=== PATIENT | male | born 1995 | race Two or more races ===

== ENCOUNTER 2018-04-19 13:32 | Emergency (ER) | payer MEDICAID, OTHER ==
[~2018-04-19] VITALS: Ht 167.6 cm; Wt 81.6 kg
[2018-04-19] MEDS ORDERED: Methocarbamol 500mg tab ORAL ONE (14:15)
[2018-04-19] MEDS ORDERED: Acetaminophen 500mg (ES) tab ORAL ONE (14:15)
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
[2018-04-19 14:39] VITALS: BP 123/70
[2018-04-19] MEDS ORDERED: ROBAXIN500 MG PO (15:38)
[2018-04-19] MEDS ORDERED: TYLENOL EXTRA500 MG ORAL (15:38)
[2018-04-19 15:57] VITALS: BP 123/70
--- NOTE | 2018-04-20 09:37 | Diagnostic Imaging Report ---
Indications: Reason For Exam: PAIN Technique: 2 or 3 views of the cervical spine Comparison: none Findings: Straightening of the normal cervical lordosis, otherwise normal alignment. No acute fractures. No dislocations. Vertebral body heights and disc spaces are preserved. No prevertebral soft tissue swelling. The adenoids are prominent Impression: No acute process
--- NOTE | 2018-04-20 10:34 | Diagnostic Imaging Report ---
Indication: Right foot pain Technique: 3 views right foot Comparison: none Findings: No acute fractures. No dislocations. The joint spaces are preserved. Impression: Negative
== END 2018-04-19 19:00 | disposition home or self-care (01) ==
LOC: EMR 18:39
DX: M54.2 Cervicalgia (principal); M79.671 Pain in right foot; G89.29 Other chronic pain
CPT/HCPCS: 72040; 99284